=== PATIENT | female | born 1970 | race Caucasian/White ===

== ENCOUNTER 2017-03-12 18:38 | Emergency (ER) | payer OTHER ==
[~2017-03-12 18:38] MED LIST: ASPIRIN EC81 MG PO; B-COMPLEX WITH1 EACH PO; EFFEXOR XR150 MG PO; LAMICTAL XR50 MG PO; MICRO-K10 MEQ PO; OXYCODONE HCL10 MG PO; PRILOSEC20 MG PO; PRINIVIL10 MG PO; SEROQUEL 100MG100 MG PO; SOMA350 MG PO; TOPAMAX100 MG PO; VITAMIN D34000 UNIT PO; ZYRTEC10 MG PO
== END 2017-03-13 00:29 | disposition home or self-care (01) ==
LOC: FER 18:38
DX: T24.112A Burn of first degree of left thigh, initial encounter (principal); L03.115 Cellulitis of right lower limb; I10 Essential (primary) hypertension; F41.9 Anxiety disorder, unspecified; Z88.6 Allergy status to analgesic agent; F17.210 Nicotine dependence, cigarettes, uncomplicated; Z79.82 Long term (current) use of aspirin; Z79.899 Other long term (current) drug therapy; X08.8XXA Exposure to other specified smoke, fire and flames, initial encounter; Y92.009 Unspecified place in unspecified non-institutional (private) residence as the place of occurrence of the external cause
CPT/HCPCS: 90471; 90715; J1885

== ENCOUNTER 2020-07-16 18:52 | Emergency (ER) | payer OTHER ==
[~2020-07-16 18:52] MED LIST changes: +NORCO 5-325 TA1 EACH PO
[2020-07-16] MEDS ORDERED: OXY-IR 5MG5 MG PO (21:14)
== END 2020-07-16 21:45 | disposition home or self-care (01) ==
LOC: FER 18:52
DX: S43.401A Unspecified sprain of right shoulder joint, initial encounter (principal); M54.5 Low back pain; M79.631 Pain in right forearm; M79.621 Pain in right upper arm; I25.2 Old myocardial infarction; I10 Essential (primary) hypertension; E78.5 Hyperlipidemia, unspecified; F31.9 Bipolar disorder, unspecified; F43.10 Post-traumatic stress disorder, unspecified; F17.200 Nicotine dependence, unspecified, uncomplicated; Z79.899 Other long term (current) drug therapy; Z79.82 Long term (current) use of aspirin; Z88.8 Allergy status to other drugs, medicaments and biological substances; Z95.1 Presence of aortocoronary bypass graft; W19.XXXA Unspecified fall, initial encounter; Y92.000 Kitchen of unspecified non-institutional (private) residence as the place of occurrence of the external cause
CPT/HCPCS: 72100; 72170; 73030; 73060; 73080; 73110; 96372; J1170

== ENCOUNTER 2020-07-22 16:12 | Emergency (ER) | payer OTHER ==
[~2020-07-22 16:12] MED LIST changes: +OXY-IR 5MG5 MG PO
[2020-07-22 17:12] LABS: BASOPHIL 0.8 % (0-2); BILIRUBIN 1+ mg/dL (NEGATIVE); BLOOD NEGATIVE Ery/uL (NEGATIVE); CLARITY CLOUDY (CLEAR); COLOR YELLOW (YELLOW); EOSINOPHIL 1.2 % (0-5); GLUCOSE (U) NORMAL (NORMAL); HGB 14.4 g/dl (12.5-16.0); LEUKOCYTES 1+ Leu/uL (NEGATIVE); LYMPHOCYTE 39.8 % (15-48); MCHC 30.6 g/dL (32.0-36.0); MCV 91.3 fL (78.0-100.0); MONOCYTE 6.2 % (0-12); MPV 10.1 fL (6.0-9.5); NEUTROPHIL 51.5 % (41-80); NITRITE NEGATIVE (NEGATIVE); NRBC 0; PLT 474 K/uL (150-400); PROTEIN TRACE (LOW) mg/dL (NEGATIVE); RBC 5.15 M/uL (4.20-5.40); RDW 17.1 % (11.5-14.0); SPECIFIC GRAVITY >=1.030 (1.001-1.030); UROBILINOGEN 0.2 mg/dL (0.2-1.0); WBC 13.6 K/uL (4.0-10.5)
[2020-07-22 17:18] LABS: BACTERIA 3+; SQUAMOUS EPITHELIAL CELLS 20-50
[2020-07-22 17:34] LABS: BUN/CREAT RATIO (CALC) 11.8 RATIO; CREATININE 1.02 mg/dL (0.51-0.95); POTASSIUM 4.2 mmol/L (3.5-5.1)
[2020-07-22 18:28] LABS: LACTIC ACID 1.2 mmol/L (0.4-1.9)
[2020-07-22 20:25] LABS: BILIRUBIN NEGATIVE (NEGATIVE); BLOOD NEGATIVE Ery/uL (NEGATIVE); CLARITY CLEAR (CLEAR); COLOR YELLOW (YELLOW); GLUCOSE (U) NORMAL (NORMAL); LEUKOCYTES 1+ Leu/uL (NEGATIVE); NITRITE NEGATIVE (NEGATIVE); PROTEIN NEGATIVE (NEGATIVE); SPECIFIC GRAVITY 1.015 (1.001-1.030); UROBILINOGEN 0.2 mg/dL (0.2-1.0)
[2020-07-22 20:31] LABS: BACTERIA 1+
[2020-07-22] MEDS ORDERED: MACROBID100 MG PO (21:11)
== END 2020-07-22 21:18 | disposition home or self-care (01) ==
LOC: FER 16:12
PROVIDERS: Emergency Medicine
DX: N39.0 Urinary tract infection, site not specified (principal); N20.0 Calculus of kidney; I12.9 Hypertensive chronic kidney disease with stage 1 through stage 4 chronic kidney disease, or unspecified chronic kidney disease; N18.9 Chronic kidney disease, unspecified; F17.210 Nicotine dependence, cigarettes, uncomplicated; Z87.442 Personal history of urinary calculi; Z88.6 Allergy status to analgesic agent
CPT/HCPCS: 36415; 80048; 81001; 83605; 85025; 87040; 87076; 87088; 87186; J1170; J1885; J2405; J7030

== ENCOUNTER 2021-01-06 08:58 | Emergency (ER) | payer OTHER ==
[~2021-01-06 08:58] MED LIST changes: +MACROBID100 MG PO
[2021-01-06 10:29] LABS: BASOPHIL 0.6 % (0-2); HCT 42.7 % (37.0-47.0); HGB 13.9 g/dl (12.5-16.0); LYMPHOCYTE 38.1 % (15-48); MCH 28.8 pg (25.0-31.0); MCHC 32.6 g/dL (32.0-36.0); MCV 88.4 fL (78.0-100.0); MPV 10.1 fL (6.0-9.5); NRBC 0; PLT 264 K/uL (150-400); RBC 4.83 M/uL (4.20-5.40); WBC 9.9 K/uL (4.0-10.5)
[2021-01-06 10:42] LABS: BILIRUBIN - TOTAL 0.2 mg/dL (0.2-1.0); BUN/CREAT RATIO (CALC) 10.2 RATIO; CREATININE 0.98 mg/dL (0.51-0.95); GLOBULIN (CALCULATION) 4.1 g/dL; POTASSIUM 4.1 mmol/L (3.5-5.1); TOTAL PROTEIN 7.1 g/dL (6.4-8.2)
[2021-01-06 10:54] LABS: BILIRUBIN NEGATIVE (NEGATIVE); BLOOD NEGATIVE Ery/uL (NEGATIVE); CLARITY CLEAR (CLEAR); COLOR YELLOW (YELLOW); GLUCOSE (U) NORMAL (NORMAL); LEUKOCYTES TRACE Leu/uL (NEGATIVE); NITRITE NEGATIVE (NEGATIVE); PROTEIN NEGATIVE (NEGATIVE); SPECIFIC GRAVITY 1.025 (1.001-1.030)
[2021-01-06 11:24] LABS: BACTERIA 1+; MUCOUS TRACE; URINARY RBC RARE
[2021-01-06] MEDS ORDERED: ROBAXIN750 MG PO (11:47)
[2021-01-06] MEDS ORDERED: NORCO 5-325 TA1 EACH PO (11:47)
[2021-01-06] MEDS ORDERED: MEDROL 4MG DOSEP4 MG PO (11:47)
== END 2021-01-06 12:07 | disposition home or self-care (01) ==
LOC: FER 08:58
PROVIDERS: Emergency Medicine
DX: M51.16 Intervertebral disc disorders with radiculopathy, lumbar region (principal); M47.26 Other spondylosis with radiculopathy, lumbar region; F17.210 Nicotine dependence, cigarettes, uncomplicated; Z86.711 Personal history of pulmonary embolism; Z88.8 Allergy status to other drugs, medicaments and biological substances
CPT/HCPCS: 36415; 72131; 80053; 81001; 85025; J1170; J2405